=== PATIENT | female | born 1985 | race African-American/Black ===

== ENCOUNTER 2018-11-01 13:50 | Emergency (ER) | payer MEDICAID, SELFPAY ==
[2018-11-01 13:50] VITALS: BP 146/85; PULSE 79; RESP 16; TEMP 35.8; O2SAT 97; BMI 36.2
--- NOTE | 2018-11-01 13:58 | CT_ITS ---
STUDY: CT BRAIN WITHOUT CONTRAST REASON FOR EXAM: Female, 33 years old. 4 day history of headaches and neck pain. RADIATION DOSAGE (If Supplied By Facility): CTDIvol = ( 60.81 ) mGy, DLP = ( 1044.85 ) mGycm TECHNIQUE: Transaxial CT imaging of the brain was performed without administration of intravenous contrast material. Individualized dose optimization techniques were used for this CT. COMPARISON: None. FINDINGS: Normal soft tissue structures. Normal calvarium. Normal size ventricles and extra-axial spaces for the patient's age. Normal white matter tracts of the cerebral hemispheres. Normal basal ganglia and thalami. Normal brainstem. Normal cerebellum. There is no intracranial hemorrhage. There are no findings of an acute ischemic infarction. There is a 1.7 cm x 2.2 cm mucosal polyp or retention cyst in the inferior aspect of the left maxillary sinus. CT/Brain/Head without Contrast IMPRESSION: Mucosal polyp or retention cyst along the inferior aspect of the left maxillary sinus. Electronically Signed: Dennis Edwards MD at 14:26 EST Tel [phone], Service support ,
--- NOTE | 2018-11-01 14:01 | ED.VISSUMM ---
- ER Visit Summary Date of Service: 11/01/18 Chief Complaint: Headache and now neck pain History of Present Illness: The patient is a 33 F no significant past medical or surgical history. She is not on blood thinners. She has had a migraine headache in the past. States 4 days ago gradual onset of right forehead headache that is moved and now said is in the right posterior back of her neck. Hurts to move her neck. She denies any falls or trauma. No fever or sinusitis. She is on no blood thinners. She states that the right side of her neck hurts to turn. 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 She denies sleeping irregularly or with her neck in an odd position. She denies any fever. She denies any history of brain aneurysms or family history. She denies any trouble moving her arms or legs nor any speech problems or any trouble walking. No visual change. Physical Examination: Well-appearing young female. Vital signs are stable and afebrile. HEENT exam pupils are reactive light. Extraocular motions are intact. No facial droop. Normal speech. No signs of trauma on her face or scalp. Neck she has right lower paraspinal soft tissue tenderness consistent with a muscle spasm. Worse with palpation and movement. The C-spine itself is nontender. The left side of her posterior neck is completely nontender. Trachea midline. Lungs clear to auscultation bilaterally. Heart regular rhythm no murmur. Abdomen soft and nontender. Normal bowel sounds no peritoneal signs. Patient is moving all 4 extremities. They are neurovascularly intact. She has 5 out of 5 full charge bookkeeper strength. Dorsi and plantar flexion are intact. Neurologic exam is normal. Her NIH score is 0. Bilateral full charge bookkeeper strength. Bilateral dorsi plantar flexion. Equal and symmetrical and normal fingertip to nose and heel to anguiano. Normal speech. Acting appropriately. Following commands. Test Results: CAT scan of the brain acute abnormality. Retention cyst. Read by the radiologist. Reviewed by me. Emergency Department Course and Treatment: Patient treated with IM Toradol. Clinically the patient's exam and history is consistent with cervical spasm. Repeat exam at 1500 patient is doing well. Neurologic exam is normal. She is feeling better after IM Toradol. Treatment Plan: History and exam are consistent with muscle spasm of her neck. Valium 5 mg as needed for muscle spasm. Hot shower. Warm bath. Massage. Motrin. Disposition: Discharge Impression: Acute neck pain secondary to cervical muscle spasm This note was generated with [employer] dictation software. It may contain incorrect words, spelling, and punctuation that were not noted in review of the chart prior to signing ED Disposition - Plan for ED Patient: Disposition: Home or Assisted Living Chief Complaint: Headache Instructions: ED Spasm Neck No Injury Prescriptions: Diazepam [Valium] 5 mg PO Q8H PRN PRN #14 tab PRN Reason: neck spasms Referrals: Delvin Irene MD [STAFF PHYSICIAN] - 3-5 Days if not improving Additional Instructions: Motrin for pain and inflammation. Hot shower, warm bath and massage to loosen up the muscle in your base your right neck. Valium as a muscle relaxant. Return if feeling worse or follow-up with your doctor if not improving.
[2018-11-01] MEDS: Ketorolac 60 MG/2 ML Vial IM (14:04)
--- NOTE | 2018-11-01 14:04 | ED.DCSUM_ITS ---
- ER Visit Summary Date of Service: 11/01/18 Chief Complaint: Headache and now neck pain History of Present Illness: The patient is a 33 F no significant past medical or surgical history. She is not on blood thinners. She has had a migraine headache in the past. States 4 days ago gradual onset of right forehead headache that is moved and now said is in the right posterior back of her neck. Hurts to move her neck. She denies any falls or trauma. No fever or sinusitis. She is on no blood thinners. She states that the right side of her neck hurts to turn. 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 She denies sleeping irregularly or with her neck in an odd position. She denies any fever. She denies any history of brain aneurysms or family history. She denies any trouble moving her arms or legs nor any speech problems or any trouble walking. No visual change. Physical Examination: Well-appearing young female. Vital signs are stable and afebrile. HEENT exam pupils are reactive light. Extraocular motions are intact. No facial droop. Normal speech. No signs of trauma on her face or scalp. Neck she has right lower paraspinal soft tissue tenderness consistent with a muscle spasm. Worse with palpation and movement. The C-spine itself is nontender. The left side of her posterior neck is completely nontender. Trachea midline. Lungs clear to auscultation bilaterally. Heart regular rhythm no murmur. Abdomen soft and nontender. Normal bowel sounds no peritoneal signs. Patient is moving all 4 extremities. They are neurovascularly intact. 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 Dorsi and plantar flexion are intact. Neurologic exam is normal. Her NIH score is 0. Bilateral metal furniture panel coverer strength. Bilateral dorsi plantar flexion. Equal and symmetrical and normal fingertip to nose and heel to anguiano. Normal speech. Acting appropriately. Following commands. Test Results: CAT scan of the brain acute abnormality. Retention cyst. Read by the radiologist. Reviewed by me. Emergency Department Course and Treatment: Patient treated with IM Toradol. Clinically the patient's exam and history is consistent with cervical spasm. Repeat exam at 1500 patient is doing well. Neurologic exam is normal. She is feeling better after IM Toradol. Treatment Plan: History and exam are consistent with muscle spasm of her neck. Valium 5 mg as needed for muscle spasm. Hot shower. Warm bath. Massage. Motrin. Disposition: Discharge Impression: Acute neck pain secondary to cervical muscle spasm This note was generated with [email or web address] dictation software. It may contain incorrect words, spelling, and punctuation that were not noted in review of the chart prior to signing ED Disposition - Plan for ED Patient: Disposition: Home or Assisted Living Chief Complaint: Headache Instructions: ED Spasm Neck No Injury Prescriptions: Diazepam [Valium] 5 mg PO Q8H PRN PRN #14 tab PRN Reason: neck spasms Referrals: Delvin Irene MD [STAFF PHYSICIAN] - 3-5 Days if not improving Additional Instructions: Motrin for pain and inflammation. Hot shower, warm bath and massage to loosen up the muscle in your base your right neck. Valium as a muscle relaxant. Return if feeling worse or follow-up with your doctor if not improving.
--- NOTE | 2018-11-01 15:03 | ED.DEP ---
ED Disposition - Plan for ED Patient: Disposition: Home or Assisted Living Chief Complaint: Headache Instructions: ED Spasm Neck No Injury Prescriptions: Diazepam [Valium] 5 mg PO Q8H PRN PRN #14 tab PRN Reason: neck spasms Referrals: Delvin Irene MD [STAFF PHYSICIAN] - 3-5 Days if not improving Additional Instructions: Motrin for pain and inflammation. Hot shower, warm bath and massage to loosen up the muscle in your base your right neck. Valium as a muscle relaxant. Return if feeling worse or follow-up with your doctor if not improving.
[2018-11-01 15:08] VITALS: BP 136/82; PULSE 88; RESP 16; O2SAT 100
--- NOTE | 2018-11-02 10:34 | ED.DEP ---
ED Disposition - Plan for ED Patient: Disposition: Home or Assisted Living Chief Complaint: Headache Instructions: ED Spasm Neck No Injury Prescriptions: Diazepam [Valium] 5 mg PO Q8H PRN PRN #14 tab PRN Reason: neck spasms Diazepam [Valium] 5 mg PO Q8 PRN #14 tab PRN Reason: Muscle Spasm Ibuprofen 600 mg PO TID PRN PRN #14 tab PRN Reason: Pain Referrals: Delvin Irene MD [STAFF PHYSICIAN] - 3-5 Days if not improving Additional Instructions: Motrin for pain and inflammation. Hot shower, warm bath and massage to loosen up the muscle in your base your right neck. Valium as a muscle relaxant. Return if feeling worse or follow-up with your doctor if not improving.
== END 2018-11-01 15:09 | disposition home or self-care (01) ==
PROVIDERS: Emergency Provider Emergency Medicine
DX: R51 Headache (principal); M54.2 Cervicalgia; M62.838 Other muscle spasm; G93.0 Cerebral cysts; Z72.0 Tobacco use
CPT/HCPCS: 70450; 96372; 99282